=== PATIENT | male | born 1990 | race American Indian/Alaskan Native ===

== ENCOUNTER 2017-02-05 19:32 | Emergency (ER) | payer SELFPAY ==
[2017-02-05 19:40] VITALS: BP 113/73; PULSE 51; RESP 18; TEMP 97.6; O2SAT 98; BMI 23.0
--- NOTE | 2017-02-05 19:46 | ED PDOC ---
Arrival/HPI - General Chief Complaint: Allergic Reaction Time Seen by Provider: 02/05/17 19:42 Historian: Patient - History of Present Illness Narrative History of Present Illness (Text): 02/05/17 19:43 26yo male who present with b/l eyes itching, watery discharge, swelling, and redness. States symptoms started suddenly today while in a friends car. Also notes mild itching of his face. denies hives, SOB, stridor, drooling, visual acuity change, any other complaint. Past Medical History - Provider Review Nursing Documentation Reviewed: Yes - Infectious Disease Hx of Infectious Diseases: None - Psychiatric Hx Substance Use: Yes (weed) - Anesthesia Hx Anesthesia: No Family/Social History - Physician Review Nursing Documentation Reviewed: Yes Family/Social History: Unknown Family HX Smoking Status: Current Some Days Smoker Hx Alcohol Use: Yes Frequency of alcohol use: Socially Hx Substance Use: Yes (weed) Allergies/Home Meds Allergies/Adverse Reactions: Allergies grapefruit Allergy (Verified 02/05/17 19:39) ANAPHYLAXIS seafood Allergy (Uncoded 02/05/17 19:39) ANAPHYLAXIS Review of Systems - Physician Review All systems were reviewed & negative as marked: Yes - Review of Systems Constitutional: Normal Eyes: Other (Eye redness, swelling, watery discahrge) ENT: Normal Respiratory: Normal Cardiovascular: Normal Gastrointestinal: Normal Genitourinary Male: Normal Musculoskeletal: Normal Skin: Normal Neurological: Normal Endocrine: Normal Hemo/Lymphatic: Normal Psychiatric: Normal Physical Exam Vital Signs Reviewed: Yes Vital Signs Temp Pulse Resp BP Pulse Ox 02/05/17 19:38 97.6 F 51 L 18 113/73 98 Temperature: Afebrile Blood Pressure: Normal Pulse: Regular Respiratory Rate: Normal Appearance: Positive for: Well-Appearing, Non-Toxic, Comfortable Pain Distress: None Mental Status: Positive for: Alert and Oriented X 3 - Systems Exam Head: Present: Atraumatic, Normocephalic Pupils: Present: PERRL Extroacular Muscles: Present: EOMI, Other (Mild lower lid swelling) Conjunctiva: Present: Injected (B/L), Icteric (Red b/l) Mouth: Present: Moist Mucous Membranes Neck: Present: Normal Range of Motion Respiratory/Chest: Present: Clear to Auscultation, Good Air Exchange. No: Respiratory Distress, Accessory Muscle Use Cardiovascular: Present: Regular Rate and Rhythm, Normal S1, S2. No: Murmurs Abdomen: Present: Normal Bowel Sounds. No: Tenderness, Distention, Peritoneal Signs Back: Present: Normal Inspection Upper Extremity: Present: Normal Inspection. No: Cyanosis, Edema Lower Extremity: Present: Normal Inspection. No: Edema Neurological: Present: GCS=15, CN II-XII Intact, Speech Normal Skin: Present: Warm, Dry, Normal Color. No: Rashes Psychiatric: Present: Alert, Oriented x 3, Normal Insight, Normal Concentration Disposition/Present on Arrival - Present on Arrival Any Indicators Present on Arrival: No History of DVT/PE: No History of Uncontrolled Diabetes: No Urinary Catheter: No History of Decub. Ulcer: No History Surgical Site Infection Following: None - Disposition Have Diagnosis and Disposition been Completed?: Yes Diagnosis: Allergic conjunctivitis Disposition: HOME/ ROUTINE Disposition Time: 19:50 Patient Plan: Discharge Condition: STABLE Discharge Instructions (ExitCare): Conjunctivitis (ED) Additional Instructions: Follow up with your doctor Return to ED for any new symptoms Prescriptions: Olopatadine 0.1% Opht [Patanol 5 Ml] 1 drop OP DAILY #1 bottle Referrals: [facility] at [facility] [place] [Outside] - Follow up with primary
[2017-02-05] MEDS ORDERED: DiphenhydrAMINE 12.5 mg/5 ml LIQ UD (5 ml) PO STA (19:48)
== END 2017-02-05 20:00 | disposition home or self-care (01) ==
LOC: ED 19:32
DX: H10.13 Acute atopic conjunctivitis, bilateral (principal); F17.200 Nicotine dependence, unspecified, uncomplicated